=== PATIENT | female | born 1930 | race Caucasian/White ===

== ENCOUNTER → 2016-07-27 18:23 | Outpatient (CLI) | payer MEDICARE, BC ==
[2009-06-02 15:42] VITALS: BMI 19.3
== END | disposition home or self-care (01) ==
LOC: D.MAMMO 07-16 09:30
DX: Z12.31 Encounter for screening mammogram for malignant neoplasm of breast (principal)

== ENCOUNTER → 2017-07-12 10:20 | Outpatient (CLI) | payer MEDICARE, BC ==
[2009-06-02 15:42] VITALS: BMI 19.3
== END | disposition home or self-care (01) ==
LOC: D.MRI 07-01 15:00
DX: M54.5 Low back pain (principal)

== ENCOUNTER 2018-03-14 12:49 | Outpatient (CLI) | payer MEDICARE, BC ==
[~2018-03-14] VITALS: Ht 160 cm; Wt 45.5 kg
[2018-03-14 14:03] VITALS: BP 166/89; Ht 160 cm; Wt 45.5 kg
== END 2018-03-14 14:22 | disposition home or self-care (01) ==
LOC: D.OPS 12:49
DX: M81.0 Age-related osteoporosis without current pathological fracture (principal); Z01.812 Encounter for preprocedural laboratory examination

== ENCOUNTER 2018-09-12 10:08 | Outpatient (CLI) | payer MEDICARE, BC ==
[~2018-09-12] VITALS: Ht 157.5 cm; Wt 47.7 kg
[2018-09-12 10:54] VITALS: BP 139/85; Ht 157.5 cm; Wt 47.7 kg
== END 2018-09-12 11:11 | disposition home or self-care (01) ==
LOC: D.OPS 10:08
PROVIDERS: ATTEND Family Medicine
DX: M81.0 Age-related osteoporosis without current pathological fracture (principal)

== ENCOUNTER 2019-03-20 13:40 | Outpatient (CLI) | payer MEDICARE, BC ==
[~2019-03-20] VITALS: Ht 157.5 cm; Wt 45.5 kg
[2019-03-20 14:04] VITALS: BP 139/71; Ht 157.5 cm; Wt 45.5 kg
== END 2019-03-20 14:12 | disposition home or self-care (01) ==
LOC: D.OPS 13:40
PROVIDERS: ATTEND Family Medicine
DX: M81.0 Age-related osteoporosis without current pathological fracture (principal)

== ENCOUNTER 2019-10-23 11:56 | Outpatient (CLI) | payer MEDICARE, BC ==
[~2019-10-23] VITALS: Ht 157.5 cm; Wt 39.5 kg
[2019-10-23 12:21] VITALS: Ht 157.5 cm; Wt 39.5 kg
--- NOTE | 2019-10-23 12:49 | NUR ---
PT LEFT UNIT VIA WC AT 1238
== END 2019-10-23 12:38 | disposition home or self-care (01) ==
LOC: D.OPS 11:56
PROVIDERS: ATTEND Family Medicine
DX: M81.0 Age-related osteoporosis without current pathological fracture (principal)

== ENCOUNTER 2020-10-21 11:54 | Outpatient (CLI) | payer MEDICARE, BC ==
[~2020-10-21] VITALS: Ht 157.5 cm; Wt 50.0 kg
[2020-10-21 12:36] VITALS: BP 144/86; Ht 157.5 cm; Wt 50.0 kg
== END 2020-10-21 12:44 | disposition home or self-care (01) ==
LOC: D.OPS 11:54
PROVIDERS: ATTEND Family Medicine
DX: M81.0 Age-related osteoporosis without current pathological fracture (principal)